=== PATIENT | male | born 1970 | race Two or more races ===

== ENCOUNTER 2021-01-23 16:40 | Inpatient (IN) | payer OTHER ==
[2021-01-23 20:09] VITALS: BMI 23.5
[2021-01-24] MEDS ORDERED: ONDANSETRON *ODT* 4 MG TABLET ONE (01:18)
[2021-01-24] MEDS ORDERED: MENTHOL/PHENOL 1 EACH UD MM PRN (01:24)
[2021-01-24] MEDS ORDERED: MAGNESIUM CITRATE 300 ML BOTTLE PO PRN (01:24)
[2021-01-24] MEDS ORDERED: MAG HYDROX/AL HYDROX/SIMETH 30 ML UNIT-DOSE CUP PO PRN (01:24)
[2021-01-24] MEDS ORDERED: BISMUTH SUBSALICYLATE 524 MG/30 ML PO PRN (01:24)
[2021-01-24] MEDS ORDERED: ACETAMINOPHEN 325 MG TABLET (FP) PO PRN ×2 (01:24)
[2021-01-24] MEDS ORDERED: MAGNESIUM HYDROX 2400MG/30ML ORAL SUSPENSION 30 ML CUP PO PRN (01:24)
[2021-01-24] MEDS ORDERED: IBUPROFEN 400 MG TABLET (FP) PO PRN (01:24)
[2021-01-24] MEDS ORDERED: NICOTINE POLACRILEX 2 MG GUM BUC PRN (01:24)
[2021-01-24] MEDS ORDERED: ONDANSETRON *ODT* 4 MG TABLET SL PRN (01:24)
[2021-01-24] MEDS ORDERED: METHOCARBAMOL 500 MG TABLET ONE (01:36)
[2021-01-24] MEDS: METHOCARBAMOL 500 MG TABLET PO PRN (01:39)
[2021-01-24] MEDS: diazePAM 5 MG TABLET PO PRN ×3 (01:41→14:45)
[2021-01-24] MEDS: diazePAM 5 MG TABLET PO SCH ×4 (06:46→22:12)
[2021-01-24] MEDS: PRENATAL VITAMINS W/ FOLIC ACID TABLET (FP) PO SCH (10:01)
[2021-01-24] MEDS: NICOTINE 14 MG/24 HOURS TOPICAL PATCH TD SCH (10:05)
[2021-01-24 10:14] LABS: HIV INTERPRETATION NEGATIVE (NEGATIVE)
[2021-01-24] MEDS ORDERED: MELATONIN 5 MG TABLETS PO SCH (22:00)
[2021-01-24] MEDS ORDERED: SUVOREXANT 10 MG TABLET PO PRN (22:00)
[2021-01-24] MEDS: THIAMINE HCL 100 MG TABLET (FP) PO SCH (22:12)
[2021-01-25] MEDS: diazePAM 5 MG TABLET PO SCH ×3 (05:37→22:07)
[2021-01-25] MEDS ORDERED: LOPERAMIDE HCL 2 MG CAPSULE PO ONE (09:21)
[2021-01-25] MEDS: NICOTINE 14 MG/24 HOURS TOPICAL PATCH TD SCH (10:14)
[2021-01-25] MEDS: diazePAM 5 MG TABLET PO PRN ×2 (10:16→17:21)
[2021-01-25] MEDS: PRENATAL VITAMINS W/ FOLIC ACID TABLET (FP) PO SCH (10:16)
[2021-01-25] MEDS: THIAMINE HCL 100 MG TABLET (FP) PO SCH (22:07)
[2021-01-26] MEDS: diazePAM 5 MG TABLET PO SCH ×2 (05:41→17:06)
[2021-01-26] MEDS: PRENATAL VITAMINS W/ FOLIC ACID TABLET (FP) PO SCH (10:02)
[2021-01-26] MEDS: NICOTINE 14 MG/24 HOURS TOPICAL PATCH TD SCH (10:02)
[2021-01-26] MEDS: diazePAM 5 MG TABLET PO PRN (10:02)
[2021-01-26 10:21] LABS: HEMATOCRIT 39.3 % (35.4-49); HEMOGLOBIN 13.5 GM/dL (11.7-16.9); MCH 37.4 pg (25.7-33.7); MCHC 34.4 g/dl (32.0-35.9); MEAN PLT VOLUME 9.1 fl (7.5-11.1); PLATELET COUNT 210 10^3/uL (134-434); RBC 3.61 M/mm3 (4.00-5.60); RDW 13.3 % (11.9-15.9); WHITE BLOOD COUNT 6.2 K/mm3 (4.0-10.0)
[2021-01-26] MEDS ORDERED: diazePAM 5 MG TABLET PO PRN (11:10)
[2021-01-26] MEDS: METHOCARBAMOL 500 MG TABLET PO PRN (13:58)
[2021-01-26] MEDS: THIAMINE HCL 100 MG TABLET (FP) PO SCH (22:07)
[2021-01-27] MEDS ORDERED: diazePAM 5 MG TABLET PO ONE ×2 (06:00→18:00)
[2021-01-27 06:49] VITALS: BP 130/85; PULSE 105; TEMP 96.9
[2021-01-27] MEDS: METHOCARBAMOL 500 MG TABLET PO PRN (07:24)
[2021-01-27] MEDS: NICOTINE 14 MG/24 HOURS TOPICAL PATCH TD SCH (09:16)
[2021-01-27] MEDS: PRENATAL VITAMINS W/ FOLIC ACID TABLET (FP) PO SCH (09:16)
[2021-01-28] MEDS ORDERED: diazePAM 5 MG TABLET PO ONE ×2 (05:00)
== END 2021-01-27 09:17 | disposition home or self-care (01) | DRG 897 ==
LOC: YASAS 16:40 → Y6N 01-24 02:28
PROVIDERS: ADMIT Allergy & Immunology; ATTEND Allergy & Immunology
PROC: HZ2ZZZZ Detoxification Services for Substance Abuse Treatment (ICD-10-PCS; principal; 2021-01-24)
DX: F10.230 Alcohol dependence with withdrawal, uncomplicated (principal); F10.220 Alcohol dependence with intoxication, uncomplicated; F17.210 Nicotine dependence, cigarettes, uncomplicated; F31.9 Bipolar disorder, unspecified; F41.9 Anxiety disorder, unspecified; I10 Essential (primary) hypertension; J45.909 Unspecified asthma, uncomplicated; Z56.0 Unemployment, unspecified
CPT/HCPCS: 36415; 80164; 85027; 86780; 87389; 93005; 93010

== ENCOUNTER 2021-06-05 12:03 | Inpatient (IN) | payer OTHER ==
[2021-06-05] MEDS ORDERED: MAGNESIUM HYDROX 2400MG/30ML ORAL SUSPENSION 30 ML CUP PO PRN (12:45)
[2021-06-05] MEDS ORDERED: ACETAMINOPHEN 325 MG TABLET (FP) PO PRN (12:45)
[2021-06-05] MEDS ORDERED: NICOTINE 10 MG CARTRIDGE (INHALER) IH PRN (12:45)
[2021-06-05] MEDS ORDERED: MENTHOL/PHENOL 1 EACH UD MM PRN (12:45)
[2021-06-05] MEDS ORDERED: MAGNESIUM CITRATE 300 ML BOTTLE PO PRN (12:45)
[2021-06-05] MEDS ORDERED: MAG HYDROX/AL HYDROX/SIMETH 30 ML UNIT-DOSE CUP PO PRN (12:45)
[2021-06-05] MEDS ORDERED: ONDANSETRON *ODT* 4 MG TABLET SL PRN (12:45)
[2021-06-05 14:25] VITALS: BMI 25.2
[2021-06-05] MEDS ORDERED: chlordiazePOXIDE HCL 25 MG CAPSULE ONE (14:33)
[2021-06-05] MEDS: chlordiazePOXIDE HCL 25 MG CAPSULE PO PRN (14:34)
[2021-06-05 14:40] LABS: HEMATOCRIT 39.2 % (35.4-49); HEMOGLOBIN 13.6 GM/dL (11.7-16.9); MCH 36.6 pg (25.7-33.7); MCHC 34.8 g/dl (32.0-35.9); MEAN CELL VOLUME 105.2 fl (80-96); MEAN PLT VOLUME 8.3 fl (7.5-11.1); PLATELET COUNT 198 10^3/uL (134-434); RBC 3.73 M/mm3 (4.00-5.60); RDW 14.1 % (11.9-15.9); WHITE BLOOD COUNT 5.5 K/mm3 (4.0-10.0)
[2021-06-05 14:48] LABS: CALCIUM 9.1 mg/dL (8.5-10.1)
[2021-06-05 14:49] LABS: BLOOD UREA NITROGEN 9.5 mg/dL (7-18)
[2021-06-05 14:52] LABS: CREATININE 0.8 mg/dL (0.55-1.3)
[2021-06-05 14:54] LABS: BILIRUBIN,TOTAL 1.2 mg/dL (0.2-1); TOT PROT 7.6 g/dl (6.4-8.2)
[2021-06-05] MEDS: NICOTINE 14 MG/24 HOURS TOPICAL PATCH TD SCH (15:28)
[2021-06-05] MEDS: METHOCARBAMOL 500 MG TABLET PO PRN (15:29)
[2021-06-05] MEDS: hydrOXYzine PAMOATE 25 MG CAPSULE (FP) PO SCH ×3 (15:29→23:00)
[2021-06-05] MEDS: PRENATAL VITAMINS W/ FOLIC ACID TABLET (FP) PO SCH (15:29)
[2021-06-05] MEDS: chlordiazePOXIDE HCL 25 MG CAPSULE PO SCH ×2 (17:15→23:00)
[2021-06-05] MEDS ORDERED: TRIMETHOBENZAMIDE HCL 200MG/2ML INJ IM ONE (22:01)
[2021-06-05] MEDS: THIAMINE HCL 100 MG TABLET (FP) PO SCH (23:00)
[2021-06-05] MEDS: MELATONIN 5 MG TABLETS PO SCH (23:00)
[2021-06-06] MEDS: chlordiazePOXIDE HCL 25 MG CAPSULE PO PRN ×2 (00:53→13:55)
[2021-06-06] MEDS: METHOCARBAMOL 500 MG TABLET PO PRN (00:54)
[2021-06-06] MEDS: ACETAMINOPHEN 325 MG TABLET (FP) PO PRN (00:54)
[2021-06-06] MEDS: chlordiazePOXIDE HCL 25 MG CAPSULE PO SCH ×4 (05:17→22:18)
[2021-06-06] MEDS: hydrOXYzine PAMOATE 25 MG CAPSULE (FP) PO SCH ×5 (05:18→22:19)
[2021-06-06] MEDS: PRENATAL VITAMINS W/ FOLIC ACID TABLET (FP) PO SCH (10:24)
[2021-06-06] MEDS: IBUPROFEN 400 MG TABLET (FP) PO PRN (10:30)
[2021-06-06] MEDS: NICOTINE 14 MG/24 HOURS TOPICAL PATCH TD SCH (11:04)
[2021-06-06] MEDS: MELATONIN 5 MG TABLETS PO SCH (22:19)
[2021-06-06] MEDS: THIAMINE HCL 100 MG TABLET (FP) PO SCH (22:19)
[2021-06-07] MEDS: chlordiazePOXIDE HCL 25 MG CAPSULE PO SCH ×4 (05:16→22:14)
[2021-06-07] MEDS: hydrOXYzine PAMOATE 25 MG CAPSULE (FP) PO SCH ×5 (05:17→22:11)
[2021-06-07] MEDS: NICOTINE 14 MG/24 HOURS TOPICAL PATCH TD SCH (10:40)
[2021-06-07] MEDS: ACETAMINOPHEN 325 MG TABLET (FP) PO PRN (10:44)
[2021-06-07] MEDS: PRENATAL VITAMINS W/ FOLIC ACID TABLET (FP) PO SCH (10:45)
[2021-06-07] MEDS: BISMUTH SUBSALICYLATE 262 MG/15 ML BTL PO PRN (12:33)
[2021-06-07] MEDS ORDERED: POTASSIUM CHLORIDE TABS 20 MEQ TABLET.ER (FP) PO ONE (16:59)
[2021-06-07] MEDS: IBUPROFEN 400 MG TABLET (FP) PO PRN (17:25)
[2021-06-07] MEDS: THIAMINE HCL 100 MG TABLET (FP) PO SCH (22:11)
[2021-06-07] MEDS: MELATONIN 5 MG TABLETS PO SCH (22:11)
[2021-06-08] MEDS ORDERED: chlordiazePOXIDE HCL 10 MG CAPSULE PO PRN
[2021-06-08] MEDS: chlordiazePOXIDE HCL 10 MG CAPSULE PO SCH ×4 (05:14→22:10)
[2021-06-08] MEDS: hydrOXYzine PAMOATE 25 MG CAPSULE (FP) PO SCH ×5 (05:14→22:10)
[2021-06-08 10:03] LABS: CALCIUM 9.7 mg/dL (8.5-10.1)
[2021-06-08 10:04] LABS: ALBUMIN 3.7 g/dl (3.4-5.0); BLOOD UREA NITROGEN 16.9 mg/dL (7-18)
[2021-06-08 10:07] LABS: CREATININE 0.6 mg/dL (0.55-1.3)
[2021-06-08 10:08] LABS: TOT PROT 6.7 g/dl (6.4-8.2)
[2021-06-08] MEDS: PRENATAL VITAMINS W/ FOLIC ACID TABLET (FP) PO SCH (10:12)
[2021-06-08] MEDS: NICOTINE 14 MG/24 HOURS TOPICAL PATCH TD SCH (10:13)
[2021-06-08] MEDS: THIAMINE HCL 100 MG TABLET (FP) PO SCH (22:10)
[2021-06-08] MEDS: MELATONIN 5 MG TABLETS PO SCH (22:10)
[2021-06-09] MEDS: chlordiazePOXIDE HCL 10 MG CAPSULE PO SCH ×2 (05:05→17:45)
[2021-06-09] MEDS: hydrOXYzine PAMOATE 25 MG CAPSULE (FP) PO SCH ×5 (05:05→22:25)
[2021-06-09] MEDS: PRENATAL VITAMINS W/ FOLIC ACID TABLET (FP) PO SCH (10:18)
[2021-06-09] MEDS: NICOTINE 14 MG/24 HOURS TOPICAL PATCH TD SCH (10:19)
[2021-06-09] MEDS: THIAMINE HCL 100 MG TABLET (FP) PO SCH (22:25)
[2021-06-09] MEDS: MELATONIN 5 MG TABLETS PO SCH (22:25)
[2021-06-10] MEDS ORDERED: chlordiazePOXIDE HCL 10 MG CAPSULE PO ONE (05:00)
[2021-06-10] MEDS: BISMUTH SUBSALICYLATE 262 MG/15 ML BTL PO PRN ×2 (05:14→07:34)
[2021-06-10] MEDS: hydrOXYzine PAMOATE 25 MG CAPSULE (FP) PO SCH (05:14)
[2021-06-10] MEDS ORDERED: ALBUTEROL SO4 HFA INHALER IH PRN (10:19)
[2021-06-10 10:46] VITALS: BP 107/73; PULSE 106; TEMP 97.7
== END 2021-06-10 09:44 | disposition home or self-care (01) | DRG 897 ==
LOC: YASAS 12:03 → Y3N 14:10
PROVIDERS: ADMIT Allergy & Immunology; ATTEND Allergy & Immunology
PROC: HZ2ZZZZ Detoxification Services for Substance Abuse Treatment (ICD-10-PCS; principal; 2021-06-05)
DX: F10.230 Alcohol dependence with withdrawal, uncomplicated (principal); F17.210 Nicotine dependence, cigarettes, uncomplicated; F31.9 Bipolar disorder, unspecified; F41.9 Anxiety disorder, unspecified; I10 Essential (primary) hypertension; J45.909 Unspecified asthma, uncomplicated; R73.9 Hyperglycemia, unspecified; R79.89 Other specified abnormal findings of blood chemistry; R71.8 Other abnormality of red blood cells; Z96.642 Presence of left artificial hip joint; Z96.651 Presence of right artificial knee joint
CPT/HCPCS: 36415; 80053; 82607; 82746; 82962; 83036; 85027; 86780; 87811; C9803; Q0162; U0003; U0005

== ENCOUNTER 2021-09-09 14:24 | Inpatient (IN) | payer OTHER ==
[2021-09-09] MEDS ORDERED: chlordiazePOXIDE HCL 25 MG CAPSULE PO PRN (16:02)
[2021-09-09] MEDS ORDERED: MAG HYDROX/AL HYDROX/SIMETH 30 ML UNIT-DOSE CUP PO PRN (16:02)
[2021-09-09] MEDS ORDERED: MAGNESIUM HYDROX 2400MG/30ML ORAL SUSPENSION 30 ML CUP PO PRN (16:02)
[2021-09-09] MEDS ORDERED: MENTHOL/PHENOL 1 EACH UD MM PRN (16:02)
[2021-09-09] MEDS ORDERED: MAGNESIUM CITRATE 300 ML BOTTLE PO PRN (16:02)
[2021-09-09] MEDS ORDERED: LOPERAMIDE HCL 2 MG CAPSULE PO PRN (16:02)
[2021-09-09] MEDS ORDERED: BISMUTH SUBSALICYLATE 524 MG/30 ML PO PRN (16:02)
[2021-09-09] MEDS ORDERED: ONDANSETRON *ODT* 4 MG TABLET SL PRN (16:02)
[2021-09-09] MEDS ORDERED: ACETAMINOPHEN 325 MG TABLET (FP) PO PRN ×2 (16:02)
[2021-09-09] MEDS ORDERED: chlordiazePOXIDE HCL 25 MG CAPSULE ONE (17:23)
[2021-09-09] MEDS: chlordiazePOXIDE HCL 25 MG CAPSULE PO SCH ×2 (17:27→22:16)
[2021-09-09 17:32] VITALS: BMI 25.0
[2021-09-09] MEDS: hydrOXYzine PAMOATE 25 MG CAPSULE (FP) PO SCH ×2 (18:20→22:16)
[2021-09-09] MEDS: THIAMINE HCL 100 MG TABLET (FP) PO SCH (22:16)
[2021-09-09] MEDS: MELATONIN 5 MG TABLETS PO SCH (22:16)
[2021-09-09] MEDS: METHOCARBAMOL 500 MG TABLET PO PRN (22:16)
[2021-09-09] MEDS: IBUPROFEN 400 MG TABLET (FP) PO PRN (22:18)
[2021-09-10] MEDS: chlordiazePOXIDE HCL 25 MG CAPSULE PO SCH ×4 (06:00→22:30)
[2021-09-10] MEDS: hydrOXYzine PAMOATE 25 MG CAPSULE (FP) PO SCH ×5 (06:01→22:31)
[2021-09-10] MEDS: NICOTINE 10 MG CARTRIDGE (INHALER) IH PRN (10:16)
[2021-09-10] MEDS: PRENATAL VITAMINS W/ FOLIC ACID TABLET (FP) PO SCH (10:16)
[2021-09-10 10:51] LABS: HEMATOCRIT 37.8 % (35.4-49); HEMOGLOBIN 13.4 GM/dL (11.7-16.9); MCH 36.7 pg (25.7-33.7); MCHC 35.5 g/dl (32.0-35.9); MEAN CELL VOLUME 103.4 fl (80-96); MEAN PLT VOLUME 9.1 fl (7.5-11.1); PLATELET COUNT 182 10^3/uL (134-434); RBC 3.66 M/mm3 (4.00-5.60); RDW 14.4 % (11.9-15.9); WHITE BLOOD COUNT 4.5 K/mm3 (4.0-10.0)
[2021-09-10 11:21] LABS: CHLORIDE 94 mmol/L (98-107); SODIUM 140 mmol/L (136-145)
[2021-09-10 11:26] LABS: CALCIUM 9.3 mg/dL (8.5-10.1)
[2021-09-10 11:27] LABS: ALBUMIN 3.4 g/dl (3.4-5.0); CO2 37 mmol/L (21-32); GLUCOSE,RANDOM 166 mg/dL (74-106)
[2021-09-10 11:30] LABS: CREATININE 0.9 mg/dL (0.55-1.3); SGOT/AST 115 U/L (15-37); SGPT/ALT 62 U/L (13-61)
[2021-09-10 11:31] LABS: BILIRUBIN,TOTAL 2.5 mg/dL (0.2-1); TOT PROT 6.1 g/dl (6.4-8.2)
[2021-09-10 11:32] LABS: ALK PHOS 54 U/L (45-117)
[2021-09-10 11:33] LABS: ANION GAP 9 MMOL/L (8-16)
[2021-09-10] MEDS ORDERED: POTASSIUM CHLORIDE TABS 20 MEQ TABLET.ER (FP) PO ONE (12:28)
[2021-09-10] MEDS ORDERED: ALBUTEROL SO4 HFA INHALER IH PRN (13:51)
[2021-09-10] MEDS: GABAPENTIN 300 MG CAPSULE PO SCH (14:33)
[2021-09-10] MEDS: LISINOPRIL 10 MG TABLET PO SCH (14:33)
[2021-09-10] MEDS: ASPIRIN COATED 81 MG TABLET.EC PO SCH (14:33)
[2021-09-10] MEDS: POTASSIUM CHLORIDE TABS 20 MEQ TABLET.ER (FP) PO SCH (22:29)
[2021-09-10] MEDS: THIAMINE HCL 100 MG TABLET (FP) PO SCH (22:29)
[2021-09-10] MEDS: ATORVASTATIN CA 10 MG TABLET (FP) PO SCH (22:29)
[2021-09-10] MEDS: MELATONIN 5 MG TABLETS PO SCH (22:30)
[2021-09-11] MEDS: hydrOXYzine PAMOATE 25 MG CAPSULE (FP) PO SCH ×5 (05:53→22:15)
[2021-09-11] MEDS: chlordiazePOXIDE HCL 25 MG CAPSULE PO SCH ×4 (05:53→22:14)
[2021-09-11] MEDS: ASPIRIN COATED 81 MG TABLET.EC PO SCH (10:13)
[2021-09-11] MEDS: LISINOPRIL 10 MG TABLET PO SCH (10:14)
[2021-09-11] MEDS: FOLIC ACID 1 MG TABLET (FP) PO SCH (10:14)
[2021-09-11] MEDS: POTASSIUM CHLORIDE TABS 20 MEQ TABLET.ER (FP) PO SCH ×2 (10:14→22:14)
[2021-09-11] MEDS: GABAPENTIN 300 MG CAPSULE PO SCH (10:14)
[2021-09-11] MEDS: PRENATAL VITAMINS W/ FOLIC ACID TABLET (FP) PO SCH (10:14)
[2021-09-11] MEDS: FUROSEMIDE 20 MG TABLET (FP) PO SCH (10:14)
[2021-09-11] MEDS: ATORVASTATIN CA 10 MG TABLET (FP) PO SCH (22:14)
[2021-09-11] MEDS: THIAMINE HCL 100 MG TABLET (FP) PO SCH (22:14)
[2021-09-11] MEDS: MELATONIN 5 MG TABLETS PO SCH (22:15)
[2021-09-12] MEDS ORDERED: chlordiazePOXIDE HCL 10 MG CAPSULE PO PRN
[2021-09-12] MEDS: hydrOXYzine PAMOATE 25 MG CAPSULE (FP) PO SCH ×5 (06:36→22:24)
[2021-09-12] MEDS: chlordiazePOXIDE HCL 10 MG CAPSULE PO SCH ×4 (06:36→22:23)
[2021-09-12] MEDS: ASPIRIN COATED 81 MG TABLET.EC PO SCH (10:24)
[2021-09-12] MEDS: FOLIC ACID 1 MG TABLET (FP) PO SCH (10:24)
[2021-09-12] MEDS: GABAPENTIN 300 MG CAPSULE PO SCH (10:24)
[2021-09-12] MEDS: PRENATAL VITAMINS W/ FOLIC ACID TABLET (FP) PO SCH (10:25)
[2021-09-12] MEDS: LISINOPRIL 10 MG TABLET PO SCH (10:25)
[2021-09-12] MEDS: POTASSIUM CHLORIDE TABS 20 MEQ TABLET.ER (FP) PO SCH (10:25)
[2021-09-12] MEDS: FUROSEMIDE 20 MG TABLET (FP) PO SCH (11:58)
[2021-09-12] MEDS: METHOCARBAMOL 500 MG TABLET PO PRN ×2 (14:22→22:23)
[2021-09-12] MEDS: IBUPROFEN 400 MG TABLET (FP) PO PRN (17:36)
[2021-09-12] MEDS: NICOTINE 10 MG CARTRIDGE (INHALER) IH PRN (20:35)
[2021-09-12] MEDS: THIAMINE HCL 100 MG TABLET (FP) PO SCH (22:23)
[2021-09-12] MEDS: ATORVASTATIN CA 10 MG TABLET (FP) PO SCH (22:23)
[2021-09-12] MEDS: MELATONIN 5 MG TABLETS PO SCH (22:23)
[2021-09-13] MEDS: hydrOXYzine PAMOATE 25 MG CAPSULE (FP) PO SCH ×5 (06:04→23:06)
[2021-09-13] MEDS: chlordiazePOXIDE HCL 10 MG CAPSULE PO SCH ×2 (06:04→17:20)
[2021-09-13] MEDS: METHOCARBAMOL 500 MG TABLET PO PRN ×2 (06:50→22:08)
[2021-09-13] MEDS: GABAPENTIN 300 MG CAPSULE PO SCH (10:19)
[2021-09-13] MEDS: ASPIRIN COATED 81 MG TABLET.EC PO SCH (10:19)
[2021-09-13] MEDS: PRENATAL VITAMINS W/ FOLIC ACID TABLET (FP) PO SCH (10:19)
[2021-09-13] MEDS: FOLIC ACID 1 MG TABLET (FP) PO SCH (10:20)
[2021-09-13] MEDS: LISINOPRIL 10 MG TABLET PO SCH (10:20)
[2021-09-13] MEDS: FUROSEMIDE 20 MG TABLET (FP) PO SCH (10:24)
[2021-09-13] MEDS: chlordiazePOXIDE 5 MG CAPSULE PO PRN ×2 (13:00→23:33)
[2021-09-13] MEDS: MELATONIN 5 MG TABLETS PO SCH (22:07)
[2021-09-13] MEDS: THIAMINE HCL 100 MG TABLET (FP) PO SCH (22:07)
[2021-09-13] MEDS: ATORVASTATIN CA 10 MG TABLET (FP) PO SCH (22:07)
[2021-09-14] MEDS ORDERED: chlordiazePOXIDE HCL 10 MG CAPSULE PO ONE (05:00)
[2021-09-14] MEDS: hydrOXYzine PAMOATE 25 MG CAPSULE (FP) PO SCH ×2 (05:41→11:05)
[2021-09-14 09:06] VITALS: BP 112/62; PULSE 70; TEMP 98.3
[2021-09-14] MEDS: ASPIRIN COATED 81 MG TABLET.EC PO SCH (10:14)
[2021-09-14] MEDS: FOLIC ACID 1 MG TABLET (FP) PO SCH (10:14)
[2021-09-14] MEDS: GABAPENTIN 300 MG CAPSULE PO SCH (10:14)
[2021-09-14] MEDS: PRENATAL VITAMINS W/ FOLIC ACID TABLET (FP) PO SCH (10:14)
[2021-09-14] MEDS: NICOTINE 10 MG CARTRIDGE (INHALER) IH PRN (10:15)
[2021-09-14] MEDS: chlordiazePOXIDE 5 MG CAPSULE PO PRN (10:35)
[2021-09-14] MEDS: LISINOPRIL 10 MG TABLET PO SCH (11:05)
[2021-09-14] MEDS: FUROSEMIDE 20 MG TABLET (FP) PO SCH (11:05)
== END 2021-09-14 12:03 | disposition other institution (70) | DRG 897 ==
LOC: YASAS 14:24 → Y3N 17:05
PROVIDERS: ADMIT Allergy & Immunology; ATTEND Allergy & Immunology
PROC: HZ2ZZZZ Detoxification Services for Substance Abuse Treatment (ICD-10-PCS; principal; 2021-09-09)
DX: F10.230 Alcohol dependence with withdrawal, uncomplicated (principal); F17.210 Nicotine dependence, cigarettes, uncomplicated; F31.9 Bipolar disorder, unspecified; F41.9 Anxiety disorder, unspecified; I10 Essential (primary) hypertension; J45.909 Unspecified asthma, uncomplicated; E80.6 Other disorders of bilirubin metabolism; R74.01 Elevation of levels of liver transaminase levels; Z96.651 Presence of right artificial knee joint; Z96.642 Presence of left artificial hip joint; Z86.69 Personal history of other diseases of the nervous system and sense organs; Z91.14 Patient's other noncompliance with medication regimen
CPT/HCPCS: 36415; 80053; 84132; 85027; 86780; 87811; C9803-CS; U0003; U0005